=== PATIENT | male | born 1975 | race Caucasian/White ===

== ENCOUNTER 2018-12-22 07:32 | Day surgery (SDC) | payer BC ==
[~2018-12-22] VITALS: Ht 188 cm; Wt 98.4 kg
[2018-12-22 08:28] VITALS: BP 125/70; Ht 188 cm; Wt 98.4 kg
[2018-12-22 08:45] LABS: HEMATOCRIT 43.5 % (42.0-54.0); HEMOGLOBIN 14.5 g/dL (13.5-17.5); MCH 30.7 pg (26.0-34.0); MCHC 33.3 g/dL (31.0-37.0); MCV 92.2 fL (80.0-100.0); MEAN PLATELET VOLUME 9.7 fL (7.4-10.4); RBC 4.72 10x6/uL (4.20-6.10); RDW 12.5 % (11.5-14.5); WBC 6.8 10x3/uL (4.8-10.8)
--- NOTE | 2018-12-24 14:22 | OP ---
PATIENT NAME: CECE ELIZABETH MEDICAL RECORD: [id number] [facility] ADMISSION DATE: SURGEON: TOMASA ZAPATA DO DATE OF OPERATION: 12/22/2018 PROCEDURE: Colonoscopy. INDICATION FOR PROCEDURE: Painless rectal bleeding. SCOPE: Olympus video pediatric colonoscope. MEDICATIONS: Propofol 400 mg IV per anesthesia. WITHDRAWAL TIME: 10 minutes. ESTIMATED BLOOD LOSS: None. COMPLICATIONS: None. FINDINGS AND DESCRIPTION OF PROCEDURE: Informed consent was given. The patient was made comfortable with the above medication. After reaching an adequate level of sedation by slow IV push, the patient was placed on his left side. A digital rectal examination was performed and it was normal. The endoscope was then advanced under direct visualization through the rectum to the cecum and terminal ileum. The endoscope was slowly withdrawn and the mucosa was carefully examined. Prep quality was excellent. There were no polyps visualized on today's examination. There were no diverticula seen. Retroflexion was performed in the rectum with visualization of grade I internal hemorrhoids without active bleeding. This is the likely source of the patient's intermittent painless rectal bleeding. The endoscope was withdrawn from the patient. The patient tolerated the procedure well and there were no complications. IMPRESSION: Grade I internal hemorrhoids without bleeding. PLAN AND RECOMMENDATIONS: 1. Discharge home when recovery parameters are met. 2. High fiber diet. 3. Consider supplementing diet with 1 tablespoon of fiber daily. 4. Continue current medications. 5. Recall colonoscopy in 10 years for colorectal cancer screening purposes. TRANSINT:[id number] Voice Confirmation ID: [id number] DOCUMENT ID: [id number] TOMASA ZAPATA DO at 1422 CC: [id number] DICTATION DATE: 12/22/18 1000 [employer] OPERATOR: 12/22/18 1100 [facility] 12/22/18 [place] [id number] [place] [id number]
== END 2018-12-22 10:55 | disposition home or self-care (01) ==
LOC: D.OPS 07:32
PROVIDERS: Anesthesiology; ATTEND Internal Medicine Gastroenterology
DX: K64.0 First degree hemorrhoids (principal); Z01.812 Encounter for preprocedural laboratory examination